=== PATIENT | female | born 1985 | race Caucasian/White ===

== ENCOUNTER 2020-09-03 10:48 | Emergency (ER) | payer OTHER ==
[~2020-09-03] VITALS: Ht 157.5 cm; Wt 58.1 kg
[2020-09-03] MEDS ORDERED: Vistaril25 MG PO (12:09)
== END 2020-09-03 12:20 | disposition home or self-care (01) ==
LOC: ER 10:48
DX: S31.159A Open bite of abdominal wall, unspecified quadrant without penetration into peritoneal cavity, initial encounter (principal); S93.402A Sprain of unspecified ligament of left ankle, initial encounter; W54.0XXA Bitten by dog, initial encounter; Y04.0XXA Assault by unarmed brawl or fight, initial encounter
CPT/HCPCS: 29515; 73610; 99283-25; A9270; L1906

== ENCOUNTER 2021-05-30 21:57 | Emergency (ER) | payer OTHER ==
[~2021-05-30] VITALS: Ht 154.9 cm; Wt 63.5 kg
[~2021-05-30 21:57] MED LIST: Vistaril25 MG PO
[2021-05-30] MEDS ORDERED: AMOCLA875 PO (23:32)
== END 2021-05-30 23:56 | disposition home or self-care (01) ==
LOC: ER 21:57
DX: S61.451A Open bite of right hand, initial encounter (principal); Z88.8 Allergy status to other drugs, medicaments and biological substances; W54.0XXA Bitten by dog, initial encounter
CPT/HCPCS: 73130; 99283; A9270

== ENCOUNTER → 2022-03-10 | Outpatient (CLI) | payer OTHER ==
[~2022-03-10] MED LIST changes: +AMOCLA875 PO
[2022-03-21 22:09] LABS: ANABASINE <1 ng/mL (.); COTININE >1000.0 ng/mL (.); NICOTINE >1000.0 ng/mL (.)
== END | disposition home or self-care (01) ==
LOC: LAB SHORT 11:00 → LAB 11:00
PROVIDERS: Obstetrics & Gynecology
DX: F17.200 Nicotine dependence, unspecified, uncomplicated (principal)
CPT/HCPCS: G0480

== ENCOUNTER → 2022-03-10 | Outpatient (CLI) | payer OTHER ==
[2022-03-12 14:10] LABS: HPV 16 Negative (Negative); HPV 18 Negative (Negative); HPV OTHER HR TYPES Positive (Negative)
== END | disposition home or self-care (01) ==
LOC: RAD SHORT 11:00
PROVIDERS: Obstetrics & Gynecology
DX: Z01.419 Encounter for gynecological examination (general) (routine) without abnormal findings (principal)
CPT/HCPCS: 87624; G0145

== ENCOUNTER 2022-06-20 06:04 | Day surgery (SDC) | payer OTHER ==
[~2022-06-20] VITALS: Ht 160 cm; Wt 71.7 kg
[2022-06-20] VITALS (12 sets, daily range): BP systolic 94–117; BP diastolic 60–96
[~2022-06-20 06:04] MED LIST changes: +ALPR.25; +ALPR1 PO; +Cyclobenzaprine5 MG PO; +DEPO-PROVE150 MG/1 M IM; +OMEP20ER PO; +ONDA4ODT; +RIZATRIPTAN10 MG; +RIZATRIPTAN10 MG SL
--- NOTE | 2022-06-20 06:45 | NUR ---
Ambulatory in Day Surgery Patient reports completing Chlorhexadine shower X2 prior to admission to hospital.Surgical site prepped with 2% Chlorhexidine cloth wipe. History, Chart, Medications and Allergies reviewed before start of procedure.Lungs clear T/O to Auscultation. Patient confirms NPO status and agrees with scheduled surgery.
--- NOTE | 2022-06-20 14:53 | NUR ---
DISCHARGE SUMMARY POD0 ROBOTIC LAP HYSTER, A/OX4, VSS, TOLERATING PO, AMBULATING INDEPENDENTLY, PAIN WELL MANAGED, VOIDING WELL. 4 LAPS ON ABD CLOSED c SURGICAL GLUE, ABD SOFT BUT TENDER TO PALPATION R/T SURGERY, MICHELE PAD CONTAINS ONLY SCANT SPOTTING. SURGEON CAME BY TO TALK WITH HER AND HER MOM PRIOR TO DC. IV ACCESS REMOVED AND NO OTHER DEVICES IN PLACE. DISCUSSED DISCHARGE INFORMATION WITH THE PATIENT AND HER MOM INCLUDING HOME CARE, MEDICATIONS, FOLLOW UP APPOINTMENTS, AND S/SX TO LOOK OUT FOR AND CONTACT INFORMATION SHOULD ANY CONCERNS COME UP. PT HAD NO QUESTIONS AT TIME OF DC. PT TAKEN TO PRIVATE AUTO VIA WC TO GO HOME.
== END 2022-06-20 14:31 | disposition home or self-care (01) ==
LOC: ORSCMMR 06:04 → ORD 08:30 → ORSCMMR 08:30 → SURS 10:43 → ORSCMMR 14:31
PROVIDERS: Obstetrics & Gynecology
PROC: 8E0W4CZ Robotic Assisted Procedure of Trunk Region, Percutaneous Endoscopic Approach (ICD-10-PCS; principal; 2022-06-20 07:30)
PROC: 0UT7FZZ Resection of Bilateral Fallopian Tubes, Via Natural or Artificial Opening With Percutaneous Endoscopic Assistance (ICD-10-PCS; principal; 2022-06-20 07:30)
PROC: 0UT9FZZ Resection of Uterus, Via Natural or Artificial Opening With Percutaneous Endoscopic Assistance (ICD-10-PCS; principal; 2022-06-20 07:30)
DX: N92.0 Excessive and frequent menstruation with regular cycle (principal); N94.6 Dysmenorrhea, unspecified; F17.290 Nicotine dependence, other tobacco product, uncomplicated; F41.9 Anxiety disorder, unspecified; Z79.899 Other long term (current) drug therapy
CPT/HCPCS: 58571; S2900; 36415; 84703; 86850; 86900; 86901; 88307; A9270; J0690; J1100; J1170; J1885; J2250; J2270; J2405; J2704; J3010; J7120

== ENCOUNTER → 2022-08-01 | Outpatient (CLI) | payer OTHER ==
[2022-08-02 10:44] LABS: Candida species (DNA Probe) Negative (NEGATIVE); G. vaginalis (DNA Probe) Positive (NEGATIVE); T. vaginalis (DNA Probe) Negative (NEGATIVE)
== END | disposition home or self-care (01) ==
LOC: LAB SHORT 15:17 → LAB 15:17
PROVIDERS: Obstetrics & Gynecology
DX: N89.8 Other specified noninflammatory disorders of vagina (principal)
CPT/HCPCS: 87480; 87510; 87660

== ENCOUNTER 2023-08-12 18:43 | Emergency (ER) | payer OTHER ==
[~2023-08-12] VITALS: Ht 160 cm; Wt 69.0 kg
[2023-08-12 18:47] VITALS: BP 163/111
== END 2023-08-12 20:30 | disposition home or self-care (01) ==
LOC: ER 18:43
DX: S90.452A Superficial foreign body, left great toe, initial encounter (principal); W45.8XXA Other foreign body or object entering through skin, initial encounter; Z88.8 Allergy status to other drugs, medicaments and biological substances; Z79.899 Other long term (current) drug therapy
CPT/HCPCS: 28190; 99283-25

== ENCOUNTER 2024-01-16 20:40 | Emergency (ER) | payer OTHER, BC ==
[~2024-01-16] VITALS: Ht 157.5 cm; Wt 71.7 kg
[2024-01-16 21:11] VITALS: BP 130/92
[2024-01-16] MEDS ORDERED: Ketorolac Tromethamine 10 MG Tab PO ONE (23:05)
== END 2024-01-16 23:13 | disposition home or self-care (01) ==
LOC: ER 20:40
DX: M25.561 Pain in right knee (principal); Z79.899 Other long term (current) drug therapy; Z88.8 Allergy status to other drugs, medicaments and biological substances
CPT/HCPCS: 73562-RT; 99283-25; A9270

== ENCOUNTER 2024-07-24 20:04 | Emergency (ER) | payer OTHER ==
[~2024-07-24] VITALS: Ht 157.5 cm; Wt 72.6 kg
[2024-07-24 20:52] LABS: BASOPHILS ABSOLUTE AUTO 0.04 K/mm3 (0.00-0.23); BASOPHILS PERCENT AUTO 0 % (0-2); EOSINOPHILS PERCENT AUTO 0 % (0-6); Hematocrit 40.5 % (33.0-51.0); Hemoglobin 13.6 g/dL (11.5-16.0); IMMATURE GRAN ABSOLUTE AUTO 0.08 K/mm3 (0.00-0.10); IMMATURE GRAN PERCENT AUTO 1 % (0-1); LYMPHOCYTES ABSOLUTE AUTO 1.36 K/mm3 (0.84-5.20); LYMPHOCYTES PERCENT AUTO 10 % (21-46); MONOCYTES ABSOLUTE AUTO 0.36 K/mm3 (0.16-1.47); MONOCYTES PERCENT AUTO 3 % (4-13); Mean Corpuscular HGB 29.1 pg (26.0-34.0); Mean Corpuscular HGB Conc 33.6 g/dL (31.5-36.5); Mean Corpuscular Volume 87 fL (80-100); Mean Platelet Volume 9.5 fL (9.1-12.4); NEUTROPHILS ABSOLUTE AUTO 12.38 K/mm3 (1.96-9.15); NEUTROPHILS PERCENT AUTO 87 % (41-73); Platelet Count 430 K/mm3 (150-400); RDW Coefficient Variation 13.3 % (11.7-14.2); RDW Standard Deviation 42.5 fL (35.1-46.3); Red Blood Cell Count 4.67 M/mm3 (3.80-5.20); White Blood Cell Count 14.22 K/mm3 (4.00-11.30)
[2024-07-24 21:05] LABS: Albumin/Globulin Ratio 0.9 (0.8-1.8); Bilirubin, Total 0.2 mg/dL (0.1-1.0); Bun/Creatinine Ratio 20.2 (12.0-20.0); Calcium, Blood 9.7 mg/dL (8.5-10.1); Creatinine, Blood 0.74 mg/dL (0.40-1.00); Globulin, Blood 4.3 g/dL (2.2-4.0); Potassium, Blood 3.9 mmol/L (3.5-5.5); Total Protein, Blood 8.3 g/dL (6.4-8.2)
[2024-07-24] MEDS ORDERED: NS 1,000 ML IV SCH (22:25)
[2024-07-24 22:54] LABS: Free Thyroxine 0.97 ng/dL (0.70-1.60); Magnesium, Blood 1.8 mg/dL (1.6-2.4); Thyroid Stimulating Hormone 0.429 uIU/mL (0.360-4.800)
[2024-07-24 23:07] VITALS: BP 108/80
== END 2024-07-24 23:07 | disposition home or self-care (01) ==
LOC: ER 20:04
PROVIDERS: Student in an Organized Health Care Education/Training Program
DX: R00.2 Palpitations (principal); R07.9 Chest pain, unspecified; Z88.8 Allergy status to other drugs, medicaments and biological substances; Z79.899 Other long term (current) drug therapy
CPT/HCPCS: 71046; 80053; 83735; 83880; 84439; 84443; 84484; 85025; 85379; 93005; 93010; 99285-25; J7030